=== PATIENT | female | born 1995 | race Caucasian/White ===

== ENCOUNTER 2017-12-27 00:05 | Inpatient (IN) | payer OTHER, MEDICAID ==
[~2017-12-27] VITALS: Ht 165.1 cm; Wt 88.0 kg
[2017-12-27] MEDS ORDERED: D5%-LACTATED RINGERS 1,000 ML IV SCH (04:54)
[2017-12-27] MEDS ORDERED: OXYTOCIN 30U/ 0.9% NaCL 500ML 500 ML IV PRN (04:54)
[2017-12-27] MEDS ORDERED: OXYTOCIN 30U/ 0.9% NaCL 500ML 500 ML IV ONE (04:54)
[2017-12-27] MEDS ORDERED: LACTATED RINGERS 1,000 ML IV SCH ×4 (04:54→19:46)
[2017-12-27] MEDS ORDERED: NEWBORN KIT ONE (04:55)
[2017-12-27] MEDS ORDERED: MISOPROSTOL 25 MCG TABLET ONE ×2 (04:55→09:52)
[2017-12-27] MEDS ORDERED: FENTANYL PF 100 MCG/2ML IV PRN (05:00)
[2017-12-27] MEDS ORDERED: ONDANSETRON 2MG/ML, 2ML IVPush PRN (05:00)
[2017-12-27] MEDS ORDERED: TERBUTALINE 1 MG/ML, 1ML IVPush PRN (05:00)
[2017-12-27] MEDS ORDERED: CALCIUM CARBONATE 500 MG TAB.CHEW PO PRN (05:00)
[2017-12-27 05:20] LABS: BASOPHILS # (AUTO) 0.01 x10^3/uL (0-0.1); BASOPHILS % (AUTO) 0 % (0-1); EOSINOPHILS # (AUTO) 0.11 x10^3/uL (0-0.4); EOSINOPHILS % (AUTO) 1 % (1-7); LYMPHOCYTES # (AUTO) 2.28 x10^3/uL (1-3.4); LYMPHOCYTES % (AUTO) 25 % (22-44); MD NO; MEAN CORPUSCULAR HGB CONC 34.7 g/dL (32.4-35.8); MEAN CORPUSCULAR VOLUME 92.2 fL (80-100); MEAN PLATELET VOLUME 8.3 fL (7.4-10.4); MONOCYTES # (AUTO) 0.56 x10^3/uL (0.2-0.8); MONOCYTES % (AUTO) 6 % (2-9); NEUTROPHILS # (AUTO) 6.29 x10^3/uL (1.8-6.8); NEUTROPHILS % (AUTO) 68 % (42-75); PLATELET COUNT 151 x10^3/uL (130-400); RED BLOOD COUNT 3.02 x10^6/uL (3.82-5.3); RED CELL DISTRIBUTION WIDTH 12.9 % (9.6-15.2)
[2017-12-27] MEDS ORDERED: ALUMINUM/MAG/SIMETHICONE 30 ML UDC PO PRN (05:40)
[2017-12-27] MEDS: MISOPROSTOL 25 MCG TABLET VG PRN ×2 (05:40→09:58)
[2017-12-27] MEDS ORDERED: SODIUM CITRATE/CITRIC ACID 30 ML UDC PO PRN (05:40)
[2017-12-27] MEDS ORDERED: FERR-51 PO (05:50)
[2017-12-27] MEDS ORDERED: PREN1TAB60 PO (05:50)
[2017-12-27] MEDS ORDERED: LABE300T2 PO (05:50)
[2017-12-27] MEDS: LABETALOL 200 MG TABLET PO SCH ×2 (06:00→22:03)
[2017-12-27 06:20] VITALS: BP 155/101
[2017-12-27 07:30] LABS: ALANINE AMINOTRANSFERASE 21 U/L (12-78); ALBUMIN 2.5 g/dL (3.4-5.0); ANION GAP 9 mmol/L (5-15); CALCIUM 8.2 mg/dL (8.5-10.1); CHLORIDE 111 mmol/L (98-107); CREATININE 2.59 mg/dL (0.55-1.02)
[2017-12-27 07:32] LABS: CREATININE,URINE RANDOM 82.6 mg/dL
[2017-12-27 07:32] LABS: ALKALINE PHOSPHATASE 128 U/L (45-117); BILIRUBIN,TOTAL 0.2 mg/dL (0.2-1.0); TOTAL PROTEIN 6.1 g/dL (6.4-8.2)
[2017-12-27 07:33] LABS: BILIRUBIN, DIRECT < 0.1 mg/dL (0.1-0.2)
[2017-12-27 07:37] LABS: MICROSCOPIC AUTO
[2017-12-27] MEDS ORDERED: hydrALAzine 20 MG/ML, 1ML ONE (07:52)
[2017-12-27] MEDS ORDERED: hydrALAzine 20 MG/ML, 1ML IV ONE ×2 (08:30→11:00)
[2017-12-27 09:28] LABS: INTERNATIONAL NORMALIZED RATIO 0.93 (0.93-1.1); PROTHROMBIN TIME 9.6 Seconds (9.6-11.5)
[2017-12-27] MEDS ORDERED: FENTANYL PF 100 MCG/2ML ONE ×3 (11:09→19:41)
[2017-12-27] MEDS: FENTANYL PF 100 MCG/2ML IVPush PRN ×3 (11:11→19:51)
[2017-12-27] MEDS ORDERED: FENTANYL/BUPIV./NS/PF 250 ML EPIDCONT SCH ×2 (13:16→17:19)
[2017-12-27] MEDS ORDERED: LACTATED RINGERS 1,000 ML IVBOLUS PRN ×2 (13:30→17:30)
[2017-12-27] MEDS ORDERED: FENTANYL PF 500 MCG, BUPIVACAINE/PF 0.5%, 30ML 62.5 ML in SODIUM CHLORIDE 0.9% 177.5 ML EPIDCONT SCH (15:30)
[2017-12-27] MEDS ORDERED: NALOXONE 0.4 MG/ML, 1ML IVPush PRN (17:30)
[2017-12-27] MEDS ORDERED: EPHEDRINE 50 MG/ML, 1ML IVPush PRN (17:30)
[2017-12-27] MEDS ORDERED: TERBUTALINE 1 MG/ML, 1ML ONE (18:17)
[2017-12-27] MEDS ORDERED: SODIUM CITRATE/CITRIC ACID 30 ML UDC ONE (18:19)
[2017-12-27] MEDS ORDERED: METOCLOPRAMIDE 5 MG/ML, 2ML ONE (18:19)
[2017-12-27] MEDS ORDERED: METOCLOPRAMIDE 5 MG/ML, 2ML IV ONE (18:30)
[2017-12-27] MEDS ORDERED: BUPIVACAINE 0.25% ONE (18:33)
[2017-12-27] MEDS ORDERED: LABETALOL 5MG/ML, 20ML ONE (18:40)
[2017-12-27] MEDS ORDERED: PROPOFOL 10 MG/ML, 20ML ONE (18:40)
[2017-12-27] MEDS ORDERED: SODIUM CHLORIDE 0.9% PF 10ML ONE (19:00)
[2017-12-27] MEDS ORDERED: CEFAZOLIN 1,000 MG ONE (19:00)
[2017-12-27] MEDS ORDERED: HYDROmorphone 2 MG/ML, 1ML ONE ×2 (19:00→20:34)
[2017-12-27] MEDS ORDERED: MIDAZOLAM 1 MG/ML, 5ML ONE (19:09)
[2017-12-27] MEDS ORDERED: OXYTOCIN 30U/ 0.9% NaCL 500ML 500 ML ONE (19:41)
[2017-12-27] MEDS: LACTATED RINGERS 1,000 ML IV SCH (19:46)
[2017-12-27] MEDS ORDERED: morphine SULFATE 10 MG/ML, 1ML IVPush PRN (20:00)
[2017-12-27] MEDS ORDERED: MEPERIDINE/PF 50 MG/ML IM PRN (20:00)
[2017-12-27] MEDS ORDERED: CARBOPROST TROMETHAMINE 250 MCG/ML, 1ML IM PRN (20:00)
[2017-12-27] MEDS ORDERED: METHYLERGONOVINE 0.2 MG/ML IM PRN (20:00)
[2017-12-27] MEDS: OXYTOCIN 30U/ 0.9% NaCL 500ML 500 ML IV SCH (20:00)
[2017-12-27] MEDS ORDERED: ACETAMINOPHEN 325 MG TABLET PO PRN (20:00)
[2017-12-27] MEDS ORDERED: MISOPROSTOL 200 MCG TABLET PR PRN (20:00)
[2017-12-27] MEDS ORDERED: ONDANSETRON 2MG/ML, 2ML IV PRN ×2 (20:00→22:00)
[2017-12-27] MEDS ORDERED: OXYcodone/APAP 5/325MG TABLET PO PRN (20:00)
[2017-12-27] MEDS ORDERED: OXYcodone IR 5MG TABLET ONE (21:43)
[2017-12-27] MEDS: OXYcodone IR 5MG TABLET PO PRN (21:45)
[2017-12-27] MEDS ORDERED: MEPERIDINE/PF 25MG/0.5ML IV PRN (22:00)
[2017-12-27] MEDS ORDERED: HYDROmorphone 2 MG/ML, 1ML IV PRN (22:00)
[2017-12-27] MEDS ORDERED: FENTANYL PF 100 MCG/2ML IVPush PRN (22:00)
[2017-12-28] MEDS ORDERED: hydrALAzine 20 MG/ML, 1ML IV ONE (01:00)
[2017-12-28] MEDS ORDERED: OXYcodone IR 5MG TABLET ONE ×2 (01:31→05:12)
[2017-12-28] MEDS: OXYcodone IR 5MG TABLET PO PRN ×5 (01:34→19:51)
[2017-12-28] MEDS: LACTATED RINGERS 1,000 ML IV SCH ×2 (05:19→15:46)
[2017-12-28] MEDS: LABETALOL 200 MG TABLET PO SCH ×3 (05:20→21:27)
[2017-12-28 05:35] LABS: MEAN CORPUSCULAR HEMOGLOBIN 32.9 pg (27.0-34.8); MEAN CORPUSCULAR HGB CONC 35.7 g/dL (32.4-35.8); MEAN PLATELET VOLUME 8.8 fL (7.4-10.4); PLATELET COUNT 138 x10^3/uL (130-400); RED BLOOD COUNT 2.73 x10^6/uL (3.82-5.3); RED CELL DISTRIBUTION WIDTH 12.1 % (9.6-15.2)
[2017-12-28 05:44] LABS: ALANINE AMINOTRANSFERASE 18 U/L (12-78); ANION GAP 9 mmol/L (5-15); CALCIUM 8.3 mg/dL (8.5-10.1); CHLORIDE 108 mmol/L (98-107); CREATININE 2.29 mg/dL (0.55-1.02)
[2017-12-28 05:46] LABS: ALKALINE PHOSPHATASE 115 U/L (45-117); BILIRUBIN,TOTAL 0.6 mg/dL (0.2-1.0); TOTAL PROTEIN 5.1 g/dL (6.4-8.2)
[2017-12-28] MEDS: OXYTOCIN 30U/ 0.9% NaCL 500ML 500 ML IV SCH ×2 (05:46→15:46)
[2017-12-28 05:54] LABS: BASOPHILS # (AUTO) 0.09 x10^3/uL (0-0.1); BASOPHILS % (AUTO) 1 % (0-1); EOSINOPHILS # (AUTO) 0.06 x10^3/uL (0-0.4); EOSINOPHILS % (AUTO) 1 % (1-7); LYMPHOCYTES # (AUTO) 1.87 x10^3/uL (1-3.4); LYMPHOCYTES % (AUTO) 15 % (22-44); MD SCAN; MONOCYTES # (AUTO) 0.57 x10^3/uL (0.2-0.8); MONOCYTES % (AUTO) 4 % (2-9); NEUTROPHILS # (AUTO) 10.33 x10^3/uL (1.8-6.8); NEUTROPHILS % (AUTO) 80 % (42-75)
[2017-12-28] MEDS: PRENATAL VIT/IRON/FA 1 EACH TABLET PO SCH (08:03)
[2017-12-28] MEDS: DOCUSATE 100 MG CAPSULE PO PRN ×2 (08:03→19:51)
[2017-12-28 08:55] VITALS: BP 145/92
[2017-12-28] MEDS: ACETAMINOPHEN 325 MG TABLET PO PRN ×2 (10:23→17:03)
[2017-12-28 12:00] VITALS: BP 136/86
[2017-12-28 17:00] VITALS: BP 176/113
[2017-12-28] MEDS ORDERED: niFEDipine ER 60 MG TABLET.ER PO SCH (17:30)
[2017-12-28 19:10] VITALS: BP 124/75
[2017-12-29 01:05] VITALS: BP 131/79
[2017-12-29] MEDS: OXYcodone IR 5MG TABLET PO PRN ×5 (01:11→20:24)
[2017-12-29] MEDS: ACETAMINOPHEN 325 MG TABLET PO PRN ×2 (01:12→11:53)
[2017-12-29] MEDS: OXYTOCIN 30U/ 0.9% NaCL 500ML 500 ML IV SCH ×3 (01:46→21:46)
[2017-12-29] MEDS: LACTATED RINGERS 1,000 ML IV SCH ×3 (01:46→21:46)
[2017-12-29 04:08] VITALS: BP 128/80
[2017-12-29] MEDS: LABETALOL 200 MG TABLET PO SCH ×3 (06:02→20:24)
[2017-12-29 06:56] LABS: BASOPHILS # (AUTO) 0.14 x10^3/uL (0-0.1); BASOPHILS % (AUTO) 1 % (0-1); EOSINOPHILS # (AUTO) 0.18 x10^3/uL (0-0.4); EOSINOPHILS % (AUTO) 1 % (1-7); LYMPHOCYTES # (AUTO) 2.41 x10^3/uL (1-3.4); LYMPHOCYTES % (AUTO) 17 % (22-44); MD NO; MEAN CORPUSCULAR HEMOGLOBIN 32.2 pg (27.0-34.8); MEAN CORPUSCULAR HGB CONC 34.8 g/dL (32.4-35.8); MEAN CORPUSCULAR VOLUME 92.5 fL (80-100); MEAN PLATELET VOLUME 8.5 fL (7.4-10.4); MONOCYTES % (AUTO) 7 % (2-9); NEUTROPHILS # (AUTO) 10.82 x10^3/uL (1.8-6.8); NEUTROPHILS % (AUTO) 74 % (42-75); PLATELET COUNT 149 x10^3/uL (130-400); RED BLOOD COUNT 2.69 x10^6/uL (3.82-5.3); RED CELL DISTRIBUTION WIDTH 12.8 % (9.6-15.2)
[2017-12-29 07:02] VITALS: BP 136/86
[2017-12-29 07:06] LABS: ALANINE AMINOTRANSFERASE 17 U/L (12-78); ALBUMIN 2.2 g/dL (3.4-5.0); ANION GAP 10 mmol/L (5-15); CALCIUM 8.3 mg/dL (8.5-10.1); CHLORIDE 107 mmol/L (98-107)
[2017-12-29 07:08] LABS: ALKALINE PHOSPHATASE 112 U/L (45-117); BILIRUBIN,TOTAL 0.3 mg/dL (0.2-1.0); TOTAL PROTEIN 5.7 g/dL (6.4-8.2)
[2017-12-29] MEDS: PRENATAL VIT/IRON/FA 1 EACH TABLET PO SCH (09:31)
[2017-12-29] MEDS: niFEDipine ER 30 MG TABLET.ER PO SCH (09:31)
[2017-12-29] MEDS: DOCUSATE 100 MG CAPSULE PO PRN ×2 (09:31→20:24)
[2017-12-29 13:20] VITALS: BP 141/90
[2017-12-29 16:15] VITALS: BP 124/78
[2017-12-29 20:00] VITALS: BP 136/87
[2017-12-30] VITALS: BP 119/71
[2017-12-30 04:00] VITALS: BP 130/81
[2017-12-30] MEDS: LABETALOL 200 MG TABLET PO SCH ×2 (04:38→13:51)
[2017-12-30] MEDS: OXYcodone IR 5MG TABLET PO PRN ×3 (04:38→13:51)
[2017-12-30 05:47] LABS: CHLORIDE 107 mmol/L (98-107)
[2017-12-30 05:55] LABS: ANION GAP 8 mmol/L (5-15); CALCIUM 8.6 mg/dL (8.5-10.1); CREATININE 2.74 mg/dL (0.55-1.02)
[2017-12-30 08:45] VITALS: BP 122/75
[2017-12-30] MEDS: DOCUSATE 100 MG CAPSULE PO PRN (08:52)
[2017-12-30] MEDS: niFEDipine ER 30 MG TABLET.ER PO SCH (08:52)
[2017-12-30] MEDS: PRENATAL VIT/IRON/FA 1 EACH TABLET PO SCH (09:00)
[2017-12-30 13:17] VITALS: BP 143/83
[2017-12-30] MEDS: ACETAMINOPHEN 325 MG TABLET PO PRN (13:52)
[2017-12-30] MEDS ORDERED: OXYC-302 PO (15:05)
[2017-12-30] MEDS ORDERED: DOCU-131 PO (15:05)
[2017-12-30] MEDS ORDERED: LABE200T6 PO (15:06)
[2017-12-30] MEDS ORDERED: NIFE30TA15 PO (15:09)
== END 2017-12-30 16:29 | disposition home or self-care (01) | DRG 765 ==
LOC: LDIP 04:51 → 2NE 21:59 → 2NW 12-28 06:27
PROVIDERS: ADMIT Obstetrics & Gynecology; ATTEND Obstetrics & Gynecology
PROC: 10D00Z1 Extraction of Products of Conception, Low, Open Approach (ICD-10-PCS; principal; 2017-12-27)
DX: O76 Abnormality in fetal heart rate and rhythm complicating labor and delivery (principal); O26.833 Pregnancy related renal disease, third trimester; N02.8 Recurrent and persistent hematuria with other morphologic changes; O10.02 Pre-existing essential hypertension complicating childbirth; O99.02 Anemia complicating childbirth; D64.9 Anemia, unspecified; J45.909 Unspecified asthma, uncomplicated; O99.52 Diseases of the respiratory system complicating childbirth; Z3A.35 35 weeks gestation of pregnancy
CPT/HCPCS: 36415; 80048; 80053; 81001; 82248; 82570; 82803; 84156; 84550; 85025; 85610; 85730; 86850; 86900; 86923; 88305; G0378; J0690; J1170; J2250; J2704; J3010; J3490; J0360; J2590; J2765; J3105; J7050; J7120

== ENCOUNTER 2018-01-03 19:06 | Emergency (ER) | payer OTHER, MEDICAID ==
[~2018-01-03] VITALS: Ht 165.1 cm; Wt 82.0 kg
[~2018-01-03 19:06] MED LIST: DOCU-131 PO; FERR-51 PO; LABE200T6 PO; LABE300T2 PO; NIFE30TA15 PO; OXYC-302 PO; PREN1TAB60 PO
[2018-01-03 20:40] VITALS: BP 150/88
[2018-01-03 21:17] LABS: BASOPHILS # (AUTO) 0.04 x10^3/uL (0-0.1); BASOPHILS % (AUTO) 0 % (0-1); EOSINOPHILS # (AUTO) 0.22 x10^3/uL (0-0.4); EOSINOPHILS % (AUTO) 2 % (1-7); LYMPHOCYTES # (AUTO) 2.37 x10^3/uL (1-3.4); LYMPHOCYTES % (AUTO) 23 % (22-44); MD NO; MEAN CORPUSCULAR HEMOGLOBIN 31.6 pg (27.0-34.8); MEAN CORPUSCULAR HGB CONC 34.7 g/dL (32.4-35.8); MEAN PLATELET VOLUME 6.9 fL (7.4-10.4); MONOCYTES # (AUTO) 0.59 x10^3/uL (0.2-0.8); MONOCYTES % (AUTO) 6 % (2-9); NEUTROPHILS # (AUTO) 7.17 x10^3/uL (1.8-6.8); NEUTROPHILS % (AUTO) 69 % (42-75); PLATELET COUNT 334 x10^3/uL (130-400); RED BLOOD COUNT 2.85 x10^6/uL (3.82-5.3); RED CELL DISTRIBUTION WIDTH 12.3 % (9.6-15.2)
[2018-01-03 21:29] LABS: ALANINE AMINOTRANSFERASE 26 U/L (12-78); ALBUMIN 2.4 g/dL (3.4-5.0); ANION GAP 8 mmol/L (5-15); CALCIUM 8.4 mg/dL (8.5-10.1); CHLORIDE 109 mmol/L (98-107); CREATININE 2.83 mg/dL (0.55-1.02)
[2018-01-03 21:30] LABS: MICROSCOPIC INDICATED
[2018-01-03 21:31] LABS: ALKALINE PHOSPHATASE 159 U/L (45-117); BILIRUBIN,TOTAL 0.3 mg/dL (0.2-1.0); TOTAL PROTEIN 6.5 g/dL (6.4-8.2)
[2018-01-03 21:32] LABS: HCG UR SG 1.012 (1.003-1.030)
[2018-01-03 21:47] LABS: CULTURE INDICATED? NO
== END 2018-01-03 22:32 | disposition home or self-care (01) ==
LOC: ED 21:36
DX: R10.84 Generalized abdominal pain (principal)
CPT/HCPCS: 36415; 74021; 80053; 81001; 81025; 83690; 84702; 85025; 99285

== ENCOUNTER 2018-12-14 14:34 | Emergency (ER) | payer OTHER, MEDICAID ==
[~2018-12-14] VITALS: Ht 165.1 cm; Wt 77.9 kg
[2018-12-14 20:38] VITALS: BP 141/87
== END 2018-12-14 20:42 | disposition home or self-care (01) ==
LOC: ED 18:24
DX: N93.8 Other specified abnormal uterine and vaginal bleeding (principal); N17.9 Acute kidney failure, unspecified; N02.8 Recurrent and persistent hematuria with other morphologic changes; F17.200 Nicotine dependence, unspecified, uncomplicated; Z98.890 Other specified postprocedural states
CPT/HCPCS: 36415; 76830; 80053; 81001; 84703; 85025; 99284

== ENCOUNTER → 2019-02-26 | Outpatient (CLI) | payer OTHER, MEDICAID | END | disposition home or self-care (01) | LOC: CVU 08:44 | PROVIDERS: ATTEND Surgery | DX: I12.0 Hypertensive chronic kidney disease with stage 5 chronic kidney disease or end stage renal disease (principal); N18.6 End stage renal disease; Z99.2 Dependence on renal dialysis | CPT/HCPCS: 93990 ==